=== PATIENT | male | born 1975 | race Caucasian/White ===

== ENCOUNTER → 2018-12-14 | Outpatient (CLI) | payer BC ==
--- NOTE | 2018-12-14 17:07 | PCVCIMAG ---
APPROVED REPORT Study performed: 12/14/2018 16:03:36 Exam: Stress Echocardiogram Indication: elevated coronary calcium score, hyperlipidemia Patient Location: Echo lab Stress Nurse: Ana Stevens RN Status: routine Ht: 5 ft 10 in HR: 65 bpm BP: 148/84 mmHg Rhythm: NSR Procedure The patient underwent an Exercise Stress Test using the Jaquan Protocol. Blood pressure, heart rate, and EKG were monitored. An Echocardiogram was performed by technician plant and maintenance in four stages in quad fashion. At peak stress, four selected images were obtained and placed side by side with resting images for comparison. Stress Test Details Stress Test: Exercise stress testing was performed using a Jaquan protocol. HR Resting HR: 65 bpmMax Heart Rate (APMHR): 176 bpm Max HR Achieved: 164 bpmTarget HR (85% APMHR): 149 bpm % of APMHR: 93 Recovery HR: 82 bpm HR response to stress: Normal HR response to stress BP Resting BP: 148/84 mmHg Max BP: 202/90 mmHg Recovery BP: 144/80 mmHg BP response to stress: Normal blood pressure response to stress. ECG Resting ECG: Sinus Rhythm Stress ECG: Sinus Rhythm ST Change: Normal Arrhythmia: None Recovery ECG: Sinus Rhythm Recovery ST Change: Normal Recovery Arrhythmia: None Clinical Reason for Termination: Maximal effort Stress Symptoms: Dyspnea Exercise duration: 13 min sec Highest Stage Achieved: Stage 4: 4.2 mph at 16% grade. Exercise capacity: 17.3 METs Overall Exercise Capacity for Age: Normal Scale: Active Angina Score: None Pre-Stress Echo The resting Echocardiogram showed normal left ventricular contractility with an estimated Ejection Fraction of about >55%. Normal wall motion in all segments on baseline images. Post-Stress Echo The stress Echocardiogram showed normal left ventricular contractility with an estimated Ejection Fraction of about 65%. Normal augmentation of wall motion in all segments on post stress images. Clinical No clinical or ECG evidence for ischemia. Conclusion Clinical Response: Non-ischemic Exercise Capacity: Average Stress ECG Response: Non-ischemic Stress Echo Images: Non-ischemic The left ventricle is normal in size and wall thickness in both the rest and stress images. Mild mitral regurgitation. Trace tricuspid regurgitation with PAP of 33 mmHg. Mild pulmonic regurgitation. Normal aortic valve, no regurgitation or stenosis. Other Information Study Quality: Adequate <Conclusion> The left ventricle is normal in size and wall thickness in both the rest and stress images. Mild mitral regurgitation. Trace tricuspid regurgitation with PAP of 33 mmHg. Mild pulmonic regurgitation. Normal aortic valve, no regurgitation or stenosis.
== END | disposition home or self-care (01) ==
LOC: PCVCIMAG 15:55
PROVIDERS: ATTEND Family Medicine
DX: I08.8 Other rheumatic multiple valve diseases (principal); E78.5 Hyperlipidemia, unspecified
CPT/HCPCS: 93325; 93351